=== PATIENT | female | born 1980 | race Caucasian/White ===

== ENCOUNTER 2021-04-16 19:35 | Emergency (ER) | payer MEDICAID, SELFPAY ==
[2021-04-16 19:47] VITALS: BP 120/73; PULSE 91; RESP 16; TEMP 36.9; O2SAT 98; BMI 27.3
--- NOTE | 2021-04-16 21:53 | ED_ITS ---
HPI - General Adult General Chief complaint: General Medical Stated complaint: rash on hands and belly Time Seen by Provider: 04/16/21 21:29 Source: patient Mode of arrival: ambulatory History of Present Illness HPI narrative: 40-year-old female with no significant past medical history presenting to the ED complaining of rash to bilateral hands and abdomen. 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 Rash is pruritic. Denies SOB/CP, new exposures/lotions, new medications, travel, known insect bites Onset (ago): day(s) Related Data Previous Rx's Medication Instructions Recorded hydrocortisone 1 % topical 1 appl TOPICAL BID PRN #28.35 g 04/16/21 ointment (Anti-Itch (hydrocortisone)) permethrin 5 % topical cream 1 appl TOPICAL Q14D #60 g 04/16/21 Allergies Allergy/AdvReac Type Severity Reaction Status Date / Time codeine Allergy Unknown UNKNOWN Unverified 03/04/20 14:39 Review of Systems Review of Systems: Constitutional: No Fever, No Chills, No Fatigue, No Malaise ENT/Mouth: No Ear Pain, No Nasal Congestion, No sore throat, No Rhinorrhea Eyes: No Eye Pain, No Swelling, No Redness Cardiovascular: No Chest Pain, No SOB, No Palpitations Respiratory: No Cough, No Dyspnea Gastrointestinal: No Nausea, No Vomiting, No Diarrhea, No Constipation, No Abdominal pain Genitourinary: No Dysuria, No Hematuria, No Hesitancy Musculoskeletal: No joint pain, No Myalgias, No Joint Swelling Skin: No Skin Lesions, + rash Neuro: No Weakness, No Headache Yes all other systems are reviewed and are negative [facility] Past Medical History Attestation statement: The following information was validated with the patient. Social History Social History Advance Directives: No Advance Directives Information Provided: No Patient : No Physical Exam Vital Signs: Vital Signs: Last Vital Signs Temp 98.4 F 04/16/21 19:47 Pulse 91 04/16/21 19:47 Resp 16 04/16/21 19:47 BP 120/73 04/16/21 19:47 Pulse Ox 98 04/16/21 19:47 Body Mass Index 27.3 Const: General: cooperative, healthy appearing and no acute distress Orientation/consciousness: patient oriented x3 Limitations: no limitations HENMT: Head: Yes normal to inspection Ears: hearing grossly normal bilaterally General nose exam: Normal external nose present Face and sinus: Yes normal facial exam Eyes: General: appearance normal, both eyes and all related structures EOM: EOMs intact bilaterally Neck: Neck: Yes normal visual inspection and Yes no meningeal signs Resp: Effort & Inspection: normal respiratory effort Auscultation: breath sounds present Cardio: Rate: regular rate Skin: Other: + couple small papules/scabs noted to left thumb in linear pattern One papule noted to abdomen No cellulitis/streaking. No inter web involvement, no palm/sole involvement Wounds: no wounds Neuro: General: patient oriented x3 and no meningeal signs Gait exam (Neuro): Normal gait present Extrem: General: Yes normal to inspection Medical Decision Making MDM Narrative Medical decision making narrative: 40-year-old female with no significant past medical history presenting to the ED complaining of rash to bilateral hands and abdomen. On exam vital signs stable, NAD/nontoxic, physical exam as above. Rash not typical for scabies however due to slight linear pattern on hand and amount contacts with similar symptoms from residential will treat for scabies as well as give topical hydrocortisone, this was discussed with patient as well as needed follow-up with Dermatology Discharge Plan Discharge Clinical Impression: Rash Patient Disposition: Home, Self-Care Instructions: Acute Rash (ED), Scabies (ED) Additional Instructions: You have a rash, this could be scabies with the medical people that are also experiencing the same symptoms Permethrin will treat scabies In addition hydrocortisone apply to rash area only will help with itching. Do not apply to face, genital area, all over hands/feet as has potential to discolored skin If rash spreads/worsens you develop shortness of breath or area begins look infected please return to the ED Prescriptions: New permethrin 5 % cream 1 appl topical Q14D Qty: 60 RF: 0 hydrocortisone [Anti-Itch (HC)] 1 % ointment 1 appl topical BID PRN (Reason: rash) Qty: 28.35 RF: 0 Referrals: Artur Lopez MD [Physician] - 2 days Dia Alfred PA-C [Physician [employer]] - 2 days Carl Razo MD [Physician] - 2 days
== END 2021-04-16 22:23 | disposition home or self-care (01) ==
PROVIDERS: Emergency Provider Internal Medicine
DX: R21 Rash and other nonspecific skin eruption (principal); Z79.899 Other long term (current) drug therapy
CPT/HCPCS: 99283; 99284

== ENCOUNTER 2021-04-28 15:36 | Emergency (ER) | payer MEDICAID, SELFPAY ==
[2021-04-28 16:06] VITALS: BP 119/69; PULSE 73; RESP 16; TEMP 36.7; O2SAT 98; BMI 26.4
--- NOTE | 2021-04-28 16:15 | ED.GENADULT ---
HPI - General Adult General Chief complaint: Skin/Abscess/Foreign Body Stated complaint: scabies? Time Seen by Provider: 04/28/21 16:15 Source: patient Limitations: no limitations History of Present Illness HPI narrative: Patient presents to the ER with question scabies. Patient of the scabies outbreak at her job. Patient recently treated approximately 1 week unchanged ago. Patient states 1 lesion between the webs of her right hand. Area is very itchy. Patient requesting treatment at this time no other complaints Related Data Previous Rx's Medication Instructions Recorded hydrocortisone 1 % topical 1 appl TOPICAL BID PRN #28.35 g 04/16/21 ointment (Anti-Itch (hydrocortisone)) permethrin 5 % topical cream 1 appl TOPICAL Q14D #60 g 04/16/21 permethrin 5 % topical cream 1 appl TOPICAL Q14D #60 g 04/28/21 Allergies Allergy/AdvReac Type Severity Reaction Status Date / Time codeine Allergy Unknown UNKNOWN Unverified 03/04/20 14:39 Review of Systems Constitutional: Constitutional: Denies chills and Denies fever(s) Cardiovascular: Cardiovascular: Denies chest pain and Denies dyspnea Respiratory: Respiratory: Denies dyspnea Gastrointestinal: Gastrointestinal: Denies nausea and Denies vomiting Allergic/Immunologic: Comments: Question rash right hand PMFSH Past Medical History Surgical History H/O tubal ligation Social History Social History Advance Directives: No Advance Directives Information Provided: No Patient : No Physical Exam Vital Signs: Vital Signs: Last Vital Signs Temp 98.1 F 04/28/21 16:06 Pulse 73 04/28/21 16:06 Resp 16 04/28/21 16:06 BP 119/69 04/28/21 16:06 Pulse Ox 98 04/28/21 16:06 Body Mass Index 26.4 vital signs have been reviewed as normal and appeared to be correct. Blood pressure normal. Heart rate normal. Respiration rate normal. Temperature normal. Oxygen saturation normal. Appearance: Alert. Oriented X3. No acute distress. Head: Normal external exam. Normocephalic. Atraumatic. Eyes: PERRLA. EOMI. Conjunctiva and sclera normal. Eyelids normal. ENT: Pharynx normal. Uvula midline. Moist mucous membranes. No trismus noted. No drooling noted. No muffled voice noted. Neck: Soft full range of motion Back: Full range of motion noted. Skin: Skin warm and dry. No obvious rash noted question 1 area in the web of the right and slight red raised lesion. Extremities: No lower extremity edema. Extremities exhibit normal range of motion. Extremities nontender. Neuro: Oriented X 3. No motor deficit. No sensory deficit. Reflexes normal. Course Course Course Narrative: Scabies exposure Scabies Contact dermatitis Will treat with permethrin again at this time. Discharge Plan Discharge Clinical Impression: Scabies Patient Disposition: Home, Self-Care Instructions: Scabies (ED) Prescriptions: New permethrin 5 % cream 1 appl topical Q14D Qty: 60 RF: 0 No Action permethrin 5 % cream 1 appl topical Q14D Qty: 60 RF: 0 hydrocortisone [Anti-Itch (HC)] 1 % ointment 1 appl topical BID PRN (Reason: rash) Qty: 28.35 RF: 0 Stand Alone Forms: Work/School Release
== END 2021-04-28 16:34 | disposition home or self-care (01) ==
PROVIDERS: Emergency Provider Emergency Medicine
DX: B86 Scabies (principal)
CPT/HCPCS: 99283

== ENCOUNTER 2021-05-27 15:07 | Emergency (ER) | payer MEDICAID, SELFPAY ==
--- NOTE | ~2021-05-27 | XR_ITS ---
EXAMINATION: XR SHOULDER, RIGHT CLINICAL INFORMATION: Pain COMPARISON: None TECHNIQUE: AP external rotation, Grashey, scapular Y, and axillary views of the right shoulder. FINDINGS: The bones and soft tissues are normal. No fracture. Glenohumeral and acromioclavicular alignment is anatomic with normal joint space. No abnormal soft tissue calcifications. XR/XR shoulder RT min 2V IMPRESSION: Normal right shoulder.
[2021-05-27 16:13] VITALS: BP 110/67; PULSE 63; RESP 16; TEMP 36.7; O2SAT 100; BMI 26.4
--- NOTE | 2021-05-27 20:10 | ED.EXTPRO ---
HPI - Extremity Problem General Chief complaint: Extremity Injury, Upper Stated complaint: R shoulder pain/No injury Time Seen by Provider: 05/27/21 20:10 Source: patient Mode of arrival: ambulatory Limitations: no limitations History of Present Illness HPI Narrative: This is a 40-year-old female that presents to the emergency department with atraumatic right shoulder pain, and a sensation of pins and needles right below the shoulder blade. Patient tells me that she woke up on Sunday with this discomfort, she rates it a 4/10 on the pain scale. She tells me that the pain does not radiate. She does not know what makes the pain better worse, she states that is constant in nature. She tells me she can move all fingers, and has full range of motion to her shoulder. She denied numbness and paresthesias. She tells me she has never had an injury to that shoulder, and she has had no shoulder surgery. Patient denies any trauma to the area. She denies chest pain, falls, shortness of breath, fevers, chills, nausea, vomiting, weakness, headache, dizziness. MD Complaint: extremity pain Onset (ago): day(s) (4) Pain Consistency: constant Location: right Quality: burning and constant Radiation: none Relieving factors: nothing Exacerbating factors: nothing Associated symptoms: denies other symptoms Related Data Previous Rx's Medication Instructions Recorded hydrocortisone 1 % topical 1 appl TOPICAL BID PRN #28.35 g 04/16/21 ointment (Anti-Itch (hydrocortisone)) permethrin 5 % topical cream 1 appl TOPICAL Q14D #60 g 04/16/21 permethrin 5 % topical cream 1 appl TOPICAL Q14D #60 g 04/28/21 cyclobenzaprine 10 mg tablet 10 mg PO BEDTIME PRN #7 tab 05/27/21 naproxen 500 mg tablet 500 mg PO BID PRN #14 tab 05/27/21 Allergies Allergy/AdvReac Type Severity Reaction Status Date / Time codeine Allergy Unknown UNKNOWN Unverified 03/04/20 14:39 Review of Systems Review of Systems: Constitutional : No Fever, No Chills, Cardiovascular : No Chest Pain, No SOB Respiratory : No Dyspnea Gastrointestinal : No abdominal pain Musculoskeletal : No Joint Swelling, + Joint pain Skin : No rash, No skin laceration Neuro : No Weakness, No Numbness Psych : No SI/HI Yes all other systems are reviewed and are negative [facility] Past Medical History Attestation statement: The following information was validated with the patient. Source: old records reviewed and nursing notes reviewed Surgical History H/O tubal ligation Social History Social History Advance Directives: No Advance Directives Information Provided: No Patient : No Physical Exam Vital Signs: Vital Signs: Last Vital Signs Temp 98.0 F 05/27/21 16:13 Pulse 63 05/27/21 16:13 Resp 16 05/27/21 16:13 BP 110/67 05/27/21 16:13 Pulse Ox 100 05/27/21 16:13 BMI result Body Mass Index 26.4 Vital signs stable. Appearance: Alert.? Oriented X3.? No acute distress.? Head: Normocephalic, atraumatic, no step-offs or deformities Neck: Normal inspection.? Neck supple.? CVS: Normal heart rate and rhythm.? Pulses normal.? Respiratory: No respiratory distress.? Breath sounds normal.? Abdomen: Soft and nontender.? Skin: Skin warm and dry.? Normal skin color.? Normal skin turgor.? Extremities: No lower extremity edema. 5/5 strength to bilateral upper and lower extremities pain free. No overlying skin changes to shoulder or shoulder blade. Back: No midline tenderness, no C-spine tenderness, full range of motion, no CVA tenderness bilaterally Neuro: Oriented X 3.? No motor deficit.? No sensory deficit. MDM - Extremity (Nontraumatic) MDM Narrative Medical decision making narrative: 1949 40-year-old female no known medical history presents to the emergency department with atraumatic right shoulder pain since Sunday, rates it a 4/10, nonradiating at times she reports pins and needles right below her scapula. Physical examination is benign. Full range of motion to bilateral upper extremities with sensation and motor intact. 2+ pulses equal bilateral. No overlying skin changes. No step-offs or deformities noted. No evident ligament or tendon involvement. I suspect that this might be a shoulder strain secondary to sleeping on her side. I will send her home on anti-inflammatory medication, and a muscle relaxer. I have advised patient to the lookout for any overlying skin changes as this appears to be localized over the lumen right scapula, at this time I do not suspect that this is shingles however of an overlying skin change appears patient has been advised to return to the emergency department. Plan at this time is to discharge patient home on a muscle relaxer, and NSAID. I have advised her to return to the emergency department with new or worsening symptoms and to follow-up with her PCP and Ortho of this does not improve in 1-2 weeks. Critical Care Time Critical Care Time Critical Care Time: No Discharge Plan Discharge Clinical Impression: Right shoulder strain Patient Disposition: Home, Self-Care Instructions: Muscle Strain (ED) Additional Instructions: Take your medications as prescribed. Cyclobenzaprine as a muscle relaxer that can make you sleepy please do not take this medicine and drive Please look out for a rash, if you develop a rash please return to the emergency department or tear primary care provider. X-ray showed no fracture or dislocation. Follow-up with your primary care provider this week. Follow-up with Orthopedics if you dont feel better in a week or two Return to the emergency department with new or worsening symptoms. In case of emergency call 911 Prescriptions: New cyclobenzaprine 10 mg tablet 10 mg PO BEDTIME PRN (Reason: muscle spasm) Qty: 7 RF: 0 naproxen 500 mg tablet 500 mg PO BID PRN (Reason: pain) Qty: 14 RF: 0 No Action permethrin 5 % cream 1 appl topical Q14D Qty: 60 RF: 0 hydrocortisone [Anti-Itch (HC)] 1 % ointment 1 appl topical BID PRN (Reason: rash) Qty: 28.35 RF: 0 permethrin 5 % cream 1 appl topical Q14D Qty: 60 RF: 0 Referrals: Oren Crane MD [Physician] - 2 weeks Physician,None [Primary Care Provider] - 2 days Stand Alone Forms: Work/School Release
== END 2021-05-27 21:02 | disposition home or self-care (01) ==
PROVIDERS: Emergency Provider Internal Medicine
DX: S46.911A Strain of unspecified muscle, fascia and tendon at shoulder and upper arm level, right arm, initial encounter (principal); M25.511 Pain in right shoulder; X58.XXXA Exposure to other specified factors, initial encounter; Y93.9 Activity, unspecified; Y92.9 Unspecified place or not applicable; Y99.9 Unspecified external cause status; Z79.899 Other long term (current) drug therapy
CPT/HCPCS: 73030; 99283

== ENCOUNTER 2023-10-17 08:02 | Emergency (ER) | payer MEDICAID, SELFPAY ==
[2023-10-17 08:43] VITALS: BP 121/76; PULSE 95; RESP 17; TEMP 36.5; O2SAT 98; BMI 31.2
--- NOTE | 2023-10-17 09:22 | ED_ITS ---
HPI - Animal Bite General Chief Complaint: Animal Bite Stated Complaint: Swelling right hand - cat scratch Time Seen by Provider: 10/17/23 09:14 Source: patient Mode of arrival: ambulatory Limitations: no limitations History of Present Illness HPI narrative: 43-year-old female presents with cat scratch to the back of right hand, this occurred on Sunday, she reports she was trying to clip her mother's cats nails, the cat scratched her and attacked her, she reports the cat is up-to-date on all shots. She is unsure if she is up-to-date on tetanus shot. She reports her hand has been red and swollen ever since and does not seem to be improving on her own. Patient reports she is able to move her wrist freely with slight discomfort. Denies fevers, chills, numbness, tingling Related Data Previous Rx's ?Medication ?Instructions ?Recorded hydrocortisone 1 % topical 1 appl topical BID PRN rash #28.35 04/16/21 ointment (Anti-Itch grams (hydrocortisone)) permethrin 5 % topical cream 1 appl topical Q14D 2 doses #60 04/16/21 grams permethrin 5 % topical cream 1 appl topical Q14D 2 doses #60 04/28/21 grams cyclobenzaprine 10 mg tablet 10 mg PO BEDTIME PRN muscle spasm 05/27/21 #7 tabs naproxen 500 mg tablet 500 mg PO BID PRN pain #14 tabs 05/27/21 amoxicillin 875 mg-potassium 1 tab PO BID 7 days #14 tabs 10/17/23 clavulanate 125 mg tablet Allergies Allergy/AdvReac Type Severity Reaction Status Date / Time codeine Allergy Unknown UNKNOWN Verified 10/17/23 08:49 Review of Systems Review of Systems: Yes all other systems are reviewed and are negative [facility] Past Medical History Attestation statement: The following information was validated with the patient. Source: old records reviewed and nursing notes reviewed Surgical History H/O tubal ligation Social History Social History Advance Directives: No Do you have a plan to hurt others: No Plan Physical Exam ED Vital Signs: Vital Signs - 24 hr 10/17/23 08:43 Temperature 97.7 F Pulse Rate 95 Respiratory Rate 17 Blood Pressure 121/76 Pulse Oximetry 98 Oxygen Delivery Method Room Air BMI result Body Mass Index 31.2 vss Appearance: Alert.? Oriented X3.? No acute distress.? Head: Normocephalic, atraumatic, no step-offs or deformities Eyes: Pupils equal, round and reactive to light.? CVS: Normal heart rate and rhythm.? Pulses normal.? Respiratory: No respiratory distress.? Breath sounds normal.?? Skin: Skin warm and dry.? Normal skin color.? Normal skin turgor.? Full painless range of motion to bilateral wrists, fingers, there is a cat scratch to the dorsal aspect of right hand, superficial scrape, no need for sutures. Normal capillary refill bilaterally to upper extremities, no wrist drop. Normal sensation distally Extremities: No lower extremity edema.? No calf ttp. 5/5 strength to bilateral upper and lower extremities Neuro: Oriented X 3.? No motor deficit.? No sensory deficit. CN 2-12 intact Course Reevaluation(s) Reevaluation #1: Educated patient on diagnosis and treatment plan, answered all question, patient verbalizes understanding. At this time patient will be discharged home, advised to return with new or worsening symptoms. Educated on worrisome signs and symptoms and when to return. At this time I feel comfortable discharge home. Time: 09:26 Medical Decision Making Medical Decision Making MDM Narrative: 43 year old female presents w/ cat scratch to right hand since Sunday. Cat up-to-date on immunizations. She is unclear of her tetanus status Physical exam ? Full painless range of motion to bilateral wrists, fingers, there is a cat scratch to the dorsal aspect of right hand, superficial scrape, no need for sutures. Normal capillary refill bilaterally to upper extremities, no wrist drop. Normal sensation distally History and physical exam consistent with cat scratch with cellulitis. No signs of septic joint, neurovascular compromise, threat to Limb, fracture dislocation. Plan discharge patient home with Augmentin will give Boostrix at this time. Educated on signs of infection. Differential Diagnosis Differential Diagnoses: The differential diagnosis associated with the presentation includes History and physical exam consistent with cat scratch with cellulitis. No signs of septic joint, neurovascular compromise, threat to Limb, fracture dislocation. Admission/Observation Consideration of admission/observation: Escalation of care including admissi on/observation considered Prescription Management I considered prescription management with: Antibiotic Discharge Plan Discharge Clinical Impression: Cat scratch of right hand Patient Disposition: Home, Self-Care Instructions: Abrasion (ED) Additional Instructions: Take your medications as prescribed. If you were prescribed antibiotics today, it is important that you take your medication to their entirety, do not skip any doses, do not finish them early. Follow-up with your primary care provider this week. Return to the emergency department with new or worsening symptoms. Such as fevers, chills, chest pain, shortness of breath, nausea, vomiting, dizziness, headache, vision changes, lethargy In case of emergency call 911 Return with new or worsening symptoms Prescriptions: New amoxicillin-pot clavulanate 875-125 mg tablet 1 tab PO BID 7 Days Qty: 14 0RF No Action permethrin 5 % cream 1 appl topical Q14D Qty: 60 0RF Rx Instructions: apply second treatment 14 days after first treatment if live mites remain hydrocortisone [Anti-Itch (HC)] 1 % ointment 1 appl topical BID PRN (Reason: rash) Qty: 28.35 0RF permethrin 5 % cream 1 appl topical Q14D Qty: 60 0RF Rx Instructions: apply second treatment 14 days after first treatment if live lice remain cyclobenzaprine 10 mg tablet 10 mg PO BEDTIME PRN (Reason: muscle spasm) Qty: 7 0RF naproxen 500 mg tablet 500 mg PO BID PRN (Reason: pain) Qty: 14 0RF Rx Instructions: Take with food Referrals: Physician,None [Primary Care Provider] - 2 days Stand Alone Forms: Work/School Release Print Language: Icelandic
[2023-10-17] MEDS: Diphth,Pertus(ACell),Tet Adult 0.5 ML SYRINGE IM (09:29)
[2023-10-17 09:31] VITALS: BP 125/81; PULSE 89; RESP 16; TEMP 36.6; O2SAT 98
== END 2023-10-17 09:31 | disposition home or self-care (01) ==
PROVIDERS: Emergency Provider Emergency Medicine
DX: S60.511A Abrasion of right hand, initial encounter (principal); W55.03XA Scratched by cat, initial encounter; Y93.9 Activity, unspecified; Y92.9 Unspecified place or not applicable; Y99.9 Unspecified external cause status; Z23 Encounter for immunization
CPT/HCPCS: 90471; 90715; 99282; 99284